=== PATIENT | female | born 1970 | race Caucasian/White ===

== ENCOUNTER 2022-08-02 20:59 | Emergency (ER) | payer BC, SELFPAY ==
[2022-08-02 21:32] VITALS: BP 120/81; PULSE 121; RESP 16; TEMP 38.3; O2SAT 98
--- NOTE | 2022-08-02 21:50 | CRLHL7_ITS ---
For Patients: As a result of the Cures Act, medical imaging exams and procedure reports are released immediately into your electronic medical record. You may view this report before your referring provider. If you have questions, please contact your health care provider. INDICATION: Chest pain, Cough TECHNIQUE: Chest radiograph 2 views COMPARISON: None FINDINGS: Mediastinum: The mediastinum is normal in appearance. The heart silhouette is normal in size and morphology. Lung: Mild patchy opacities are present in the right middle lobe, best visualized on the lateral view. No sign of pleural effusion seen. No pneumothorax is identified. Bone and Soft tissue: Unremarkable for age. IMPRESSION: 1. Mild patchy opacities are present in the right middle lobe, best visualized on the lateral view. These findings can be seen with atelectasis and/or pneumonia. Dictated by Cristobal Perera MD @ 08/02/2022 10:36:44 PM Dictated by: Cristobal Perera MD @ 08/02/2022 22:36:47 (Electronically Signed)
--- NOTE | 2022-08-02 21:55 | ED.SOB ---
HPI - SOB/Dyspnea General Chief Complaint: Cough Stated Complaint: Hurts to breathe, Fever, Bad cough Time Seen by Provider: 08/02/22 21:45 History of Present Illness HPI Narrative: Pt is a 51 year old woman who was treated for sinusitis with Augmentin 2 1/2 weeks ago who presents with cough and fever for the past 24 hours. Pt has been taking Motrin but still has a fever. She has a cough which is nonproductive. No chest pain or shortness of breath. She is a nonsmoker. Pt has decreased appetite and feels like she is not drinking enough water. No rash or GI symptoms. Symptoms are described as moderate. No further sinus symptoms. Related Data Home Medications Medication Instructions Recorded Confirmed fluoxetine 10 mg capsule mg 08/02/22 Allergies Allergy/AdvReac Type Severity Reaction Status Date / Time No Known Drug Allergies Allergy Verified 08/02/22 21:33 Review of Systems Status of ROS: Reports: 10 or more systems reviewed and unremarkable except as noted in History and below PFSH [facility] Social History Smoking Status: Never smoker Do you use any of these nicotine containing products: None How often do you have a drink containing alcohol: monthly or less AUDIT-C Alcohol total score: 1 Non-prescribed substance use: denies use Exam Narrative: Exam Narrative: EXAM GENERAL: Patient appears comfortable and well. EYES: No scleral icterus. ENT: Tympanic membranes and oropharynx normal. THYROID: no thyroid nodules or thyromegaly. LYMPH: No supraclavicular or cervical lymphadenopathy. SKIN: Visible skin seen during exam normal or with benign process only. EXT: No dependent lower extremity pedal edema. HEART: Regular rate and rhythm with no murmurs, rubs, or gallops. LUNGS: Clear to auscultation bilaterally with no crackles or wheezes. ABD: Soft, non tender, non distended. PSYCH: Good eye contact, speech is not pressured. Const: Vital Signs, click to edit/add: Vital Signs - 24 hr 08/02/22 21:32 Temperature 100.9 F H Pulse Rate [Left P ulse Oximeter] 121 H Respiratory Rate 16 Blood Pressure [Le ft Upper Arm] 120/81 Pulse Oximetry 98 Oxygen Delivery Me thod Room Air Course Course Hospital Course: Pt seen and examined. Pt's viral swab collected. Chest x ray ordered. Reevaluation(s) Reevaluation #1: All viral swabs negative. CXR upon my review shows RML infiltrate. Time: 22:49 Vital Signs Vital signs: Initial Vital Signs Temperature 100.9 F H 08/02/22 21:32 Temperature Source Temporal Artery Scan 08/02/22 21:32 Pulse Rate 121 H 08/02/22 21:32 Respiratory Rate 16 08/02/22 21:32 Blood Pressure 120/81 08/02/22 21:32 Blood Pressure Mean 94 08/02/22 21:32 Blood Pressure Position Sitting 08/02/22 21:32 Pulse Oximetry 98 08/02/22 21:32 Oxygen Delivery Method 08/02/22 21:32 Vital Signs Temperature 100.9 F H 08/02/22 21:32 Pulse Rate 121 H 08/02/22 21:32 Respiratory Rate 16 08/02/22 21:32 Blood Pressure 120/81 08/02/22 21:32 Pulse Oximetry 98 08/02/22 21:32 Oxygen Delivery Method 08/02/22 21:32 Temperature 100.9 F H 08/02/22 21:32 Pulse Rate 121 H 08/02/22 21:32 Respiratory Rate 16 08/02/22 21:32 Blood Pressure 120/81 08/02/22 21:32 Pulse Oximetry 98 08/02/22 21:32 Oxygen Delivery Method 08/02/22 21:32 MDM - SOB/Dyspnea MDM Narrative Medical decision making narrative: Pt is a 51 year old woman who presents with cough and fever. Viral studies negative. Chest X ray shows RML infiltrate. Will RX with Augmentin plus Zithromax plus Tylenol/Motrin rest and fluids. PCP follow up. Differential Diagnosis Differential diagnosis: Likely congestive heart failure, community acquired pneumonia and asthma with exacerbation Lab Data Labs: Lab Results 08/02/22 Range/Units 21:34 SARS-CoV-2 (PCR) Negative SARS-CoV-2 (Negative) Influenza Type A (PCR) Negative PCR FLU A (Negative) Influenza Type B (PCR) Negative PCR FLU B (Negative) RSV (PCR) Negative PCR RSV (Negative) Discharge Plan Discharge Clinical Impression: Pneumonia Patient Disposition: Home, Self-Care Condition: Stable Instructions: Pneumonia (ED) Additional Instructions: Augmentin Zithromax Rest Fluids Tylenol Motrin Activity Level: Activity as Tolerated Discharge Diet: Regular Prescriptions: No Action fluoxetine 10 mg capsule Label Comments: TAKE 1 CAPSULE BY MOUTH EVERY MORNING ADDITION TO 20MG CAPSULE. TOTAL DOSE OF 30MG Follow Up/Referrals: Eugene Devine MD [Primary Care Provider] - Stand Alone Forms: [employer] Info Instructions
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
[2022-08-02 22:16] LABS: PCR FLU A Negative PCR FLU A (Negative); PCR FLU B Negative PCR FLU B (Negative); PCR RSV Negative PCR RSV (Negative)
[2022-08-02 22:27] LABS: SARS PCR* Negative SARS-CoV-2 (Negative)
[2022-08-02 23:40] VITALS: BP 122/66; PULSE 112; RESP 16
== END 2022-08-02 23:00 | disposition home or self-care (01) ==
PROVIDERS: Emergency Provider Internal Medicine; PCP Family Medicine
DX: J18.9 Pneumonia, unspecified organism (principal)
CPT/HCPCS: 71046; 87502; 87634; 87635; 99283